=== PATIENT | female | born 1945 | race African-American/Black ===

== ENCOUNTER 2023-09-18 13:09 | Emergency (ER) | payer OTHER ==
[2023-09-18 15:31] VITALS: TEMP 97.5; BMI 36.7
[2023-09-18 15:33] LABS: POTASSIUM 4.6 mmol/L (3.5-5.1)
[2023-09-18 15:35] LABS: CALCIUM 8.8 mg/dL (8.5-10.1)
[2023-09-18 15:36] LABS: ALBUMIN 3.5 g/dl (3.4-5.0); BLOOD UREA NITROGEN 19.9 mg/dL (7-18)
[2023-09-18 15:37] LABS: BASO % 1.2 % (0-2.0); EOS % 0.6 % (0-4.5); HEMATOCRIT 33.8 % (32.4-45.2); HEMOGLOBIN 11.2 GM/dL (10.7-15.3); LYMPH % 15.5 % (8-40); MCH 29.7 pg (25.7-33.7); MCHC 33.2 g/dl (32.0-36.0); MEAN CELL VOLUME 89.4 fl (80-96); MEAN PLT VOLUME 9.9 fl (7.5-11.1); NEUT % 75.7 % (42.8-82.8); RBC 3.78 M/mm3 (3.60-5.2); RDW 16.2 % (11.6-15.6)
[2023-09-18 15:39] LABS: CREATININE 1.4 mg/dL (0.55-1.3)
[2023-09-18 15:40] LABS: BILIRUBIN,TOTAL 0.5 mg/dL (0.2-1); WHITE BLOOD COUNT 7.1 K/mm3 (4.0-10.0)
[2023-09-18 15:41] LABS: TOT PROT 9.3 g/dl (6.4-8.2)
[2023-09-18 15:46] LABS: PH,URINE 6.5 (5.0-8.0); URINE APPEARANCE CLEAR; URINE BILIRUBIN NEGATIVE (NEGATIVE); URINE COLOR YELLOW; URINE GLUCOSE (UA) NEGATIVE (NEGATIVE); URINE KETONE NEGATIVE (NEGATIVE); URINE LEUK ESTERASE NEGATIVE (NEGATIVE); URINE NITRITE NEGATIVE (NEGATIVE); URINE PROTEIN TRACE (NEGATIVE); URINE UROBILINOGEN 0.2 mg/dL (0.2-1.0)
[2023-09-18 16:05] LABS: PLATELET COUNT 207 10^3/uL (134-434)
[2023-09-18 16:29] VITALS: BP 161/70; PULSE 75; RESP 18
== END 2023-09-18 16:29 | disposition home or self-care (01) ==
LOC: JER 13:09
DX: E11.649 Type 2 diabetes mellitus with hypoglycemia without coma (principal); R42 Dizziness and giddiness; R53.1 Weakness; R07.9 Chest pain, unspecified; Z20.822 Contact with and (suspected) exposure to COVID-19; Z79.4 Long term (current) use of insulin
CPT/HCPCS: 0241U-QW; 36415; 71045-TC-FY; 80053; 81003; 82962; 84439; 84443; 84484; 85025; 87086; 93005; 93010; 99285-25